=== PATIENT | male | born 1935 | race Hispanic/Latino ===

== ENCOUNTER 2017-11-13 10:35 | Emergency (ER) | payer BC, MEDICARE ==
[2017-11-13 11:25] LABS: ALT (SGPT) 10 U/L (8-55); AST (SGOT) 23 U/L (5-34); Alkaline Phosphatase 77 U/L (40-150); Anion Gap 12 mmol/L (10-20); BUN (Urea Nitrogen) 33 mg/dL (8.4-25.7); CK (CPK) 45 U/L (30-200); Calc. Creatinine Clearance 0 mL/min (70-130); Calcium 9.2 mg/dL (7.8-10.44); Carbon Dioxide 29 mmol/L (23-31); Chloride 106 mmol/L (98-107); Estimated GFR-MDRD 49; Globulin 3.3 g/dL (2.4-3.5); Protein, Total 7.1 g/dL (5.8-8.1)
[2017-11-13 11:35] LABS: Troponin I Less than 0.010 ng/mL (< 0.028)
[2017-11-13 11:38] LABS: #Eosinphils 0.1 thou/uL (0.0-0.7); #Lymphocytes 1.8 thou/uL (1.20-3.40); #Monocytes 0.3 thou/uL (0.11-0.59); #Neutrophils 3.2 thou/uL (1.40-6.50); %Basophils 0.7 % (0.0-1.0); %Eosinophils 2.6 % (0.0-10.0); %Lymphocytes 32.7 % (21.0-51.0); %Monocytes 4.7 % (0.0-10.0); Hematocrit 28.8 % (42.0-52.0); Macrocytosis MODERATE=16-30 cells (100X) (0-5/hpf); Mean Platelet Volume 9.2 fL (7.4-10.4); Red Blood Cell (RBC) Count 2.19 mill/uL (4.70-6.10); White Blood Cell (WBC) Count 5.5 thou/uL (4.8-10.8)
== END 2017-11-13 14:08 | disposition home or self-care (01) ==
LOC: ERS 10:35
DX: S80.212A Abrasion, left knee, initial encounter (principal); R20.2 Paresthesia of skin; I25.10 Atherosclerotic heart disease of native coronary artery without angina pectoris; W19.XXXA Unspecified fall, initial encounter
CPT/HCPCS: 36415; 80053; 82553; 83880; 84484; 85025; 93005

== ENCOUNTER 2017-11-27 10:40 | Emergency (ER) | payer MEDICARE, BC ==
[2017-11-27 12:10] LABS: #Eosinphils 0.1 thou/uL (0.0-0.7); #Lymphocytes 1.1 thou/uL (1.20-3.40); #Monocytes 0.2 thou/uL (0.11-0.59); #Neutrophils 3.2 thou/uL (1.40-6.50); %Basophils 0.1 % (0.0-1.0); %Eosinophils 2.9 % (0.0-10.0); %Monocytes 4.5 % (0.0-10.0); %Neutrophils 68.6 % (42.0-75.0); Hemoglobin 8.3 g/dL (14.0-18.0); Mean Corpuscular Hemoglobin 45.2 pg (27.0-31.0); Mean Platelet Volume 9.1 fL (7.4-10.4); Platelet Count 96 thou/uL (130-400); RBC Distribution Width 15.2 % (11.5-14.5); Red Blood Cell (RBC) Count 1.83 mill/uL (4.70-6.10); White Blood Cell (WBC) Count 4.6 thou/uL (4.8-10.8)
[2017-11-27 12:32] LABS: ALT (SGPT) 12 U/L (8-55); AST (SGOT) 19 U/L (5-34); Albumin 3.6 g/dL (3.4-4.8); Alkaline Phosphatase 91 U/L (40-150); Anion Gap 9 mmol/L (10-20); BUN (Urea Nitrogen) 39 mg/dL (8.4-25.7); Calc. Creatinine Clearance 0 mL/min (70-130); Carbon Dioxide 29 mmol/L (23-31); Chloride 107 mmol/L (98-107); Estimated GFR-MDRD 57; Globulin 3.3 g/dL (2.4-3.5); Glucose 95 mg/dL (83-110); Potassium 4.2 mmol/L (3.5-5.1); Protein, Total 6.9 g/dL (5.8-8.1); Sodium 141 mmol/L (136-145)
[2017-11-27 13:12] LABS: CKMB 0.9 ng/mL (0-6.6); Troponin I Less than 0.010 ng/mL (< 0.028)
--- NOTE | 2018-01-05 18:58 | EKG ---
Test Reason : Blood Pressure : / mmHG Vent. Rate : 088 BPM Atrial Rate : 088 BPM P-R Int : 132 ms QRS Dur : 070 ms QT Int : 360 ms P-R-T Axes : 084 006 068 degrees QTc Int : 435 ms Normal sinus rhythm Normal ECG Confirmed by LUPILLO GROSS, JAMAICA [place] ([id number]), commissioning editor ALEJO JONES ([id number]) on 01/05/2018 6:58:10 PM Referred By: Confirmed By:JAMAICA WESLEY MD
== END 2017-11-27 14:15 | disposition home or self-care (01) ==
LOC: EDBD → ERS 10:40
DX: D64.9 Anemia, unspecified (principal); I25.10 Atherosclerotic heart disease of native coronary artery without angina pectoris
CPT/HCPCS: 36415; 80053; 82550; 82553; 84484; 85025; 86850; 86900; 86901; 93005

== ENCOUNTER 2017-12-06 14:59 | Outpatient (CLI) | payer MEDICARE, BC ==
--- NOTE | 2017-12-06 17:56 | MRI ---
MRI CERVICAL SPINE 12/06/17 HISTORY: Cervical myelopathy, G95.9. Multiplanar and multisequence noncontrast enhanced MRI images cervical spine obtained. C1-2: Unremarkable. C2-3: There is a broad based disc bulge minimally but not significantly compressing the thecal sac. T he neural foramen are patent. C3-4: There is a broad based central disc protrusion compressing the thecal sac and compressing the a nterior aspect of the spinal cord deforming the cord anteriorly. The right neural foramen is patent. There was moderate severe left C3-4 neural foraminal narrowing due to uncovertebral osteophyte hypert rophy. C4-5: There is a broad based central disc protrusion compressing the thecal sac and minimally mary lou sing the spinal cord. Moderate bilateral C4-5 neural foraminal narrowing is seen due to uncovertebral osteophyte hypertrophy. C5-6: There is a broad based central and left paracentral disc osteophyte complex resulting in modera te compression of the thecal sac and mild compression of the left C5-6 spinal cord. The right neural foramen is patent. There is moderate to severe left C5-6 neural foraminal narrowing due to uncoverteb ral osteophyte hypertrophy. C6-7: No significant evidence of central or neural foraminal narrowing is seen. C7-T1: Unremarkable. IMPRESSION: Central thecal sac compression with some compression of the cord at C3-4, C4-5, and to a lesser degre e C5-6. POS: [facility]
== END 2017-12-06 15:00 | disposition home or self-care (01) ==
LOC: MRI 14:59
PROVIDERS: ATTEND Psychiatry & Neurology Neurology
DX: G95.9 Disease of spinal cord, unspecified (principal); G95.20 Unspecified cord compression
CPT/HCPCS: 72141

== ENCOUNTER 2017-12-24 11:39 | Outpatient (CLI) | payer MEDICARE, BC ==
[2017-12-24 13:37] LABS: Mean Corpuscular HGB CONC 32.2 g/dL (32.0-36.0); Mean Corpuscular Hemoglobin 40.1 pg (27.0-31.0); Mean Platelet Volume 9.4 fL (7.4-10.4); Platelet Count 151 thou/uL (130-400); RBC Distribution Width 14.4 % (11.5-14.5); Red Blood Cell (RBC) Count 2.24 mill/uL (4.70-6.10); White Blood Cell (WBC) Count 6.6 thou/uL (4.8-10.8)
== END 2017-12-24 11:40 | disposition home or self-care (01) ==
LOC: EDBD → LABBT 11:39
PROVIDERS: ATTEND Neurological Surgery
DX: Z01.812 Encounter for preprocedural laboratory examination (principal); M47.892 Other spondylosis, cervical region
CPT/HCPCS: 85027

== ENCOUNTER 2017-12-31 07:44 | Day surgery (SDC) | payer MEDICARE, BC ==
[2017-12-24 12:32] VITALS: BMI 18.9
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
[2017-12-31] MEDS ORDERED: CEFAZOLIN/Water 2 GM/20 ML SYRINGE ONE ×2 (08:38→17:20)
[2017-12-31] MEDS ORDERED: Bupivacaine PF 0.5% 30 ML VIAL ONE (10:10)
[2017-12-31] MEDS ORDERED: Lidocaine 1% w/Epinephrine 1:200K 30 ML VIAL ONE (10:10)
[2017-12-31] MEDS ORDERED: Thrombin 5000 UNITS/5 ML VIAL ONE (10:10)
[2017-12-31] MEDS ORDERED: Fentanyl 100 MCG/2 ML VIAL ONE ×2 (10:17→12:43)
[2017-12-31] MEDS ORDERED: Tamsulosin HCl 0.4 MG CAP ONE (12:38)
--- NOTE | 2017-12-31 13:26 | OP ---
DATE OF SERVICE: 12/31/2017 SURGEON: Aníbal Cline M.D. BRAZER REPAIR AND SALVAGE: Jai Arcos PA-C. INDICATION: Prevent neurologic decline. DIAGNOSES: Cervical spondylitic myelopathy. PROCEDURE PERFORMED: Posterior cervical laminectomy, C3-C6. ANESTHESIA: General. TECHNIQUE: The patient was brought into the operating room and placed under general anesthesia. He was carefully flipped from a supine to a prone position on the operating room table. A linear incisi on was planned spanning C3-C6. After prepping and draping and after an appropriate operative pause, the incision was created. The soft tissues were swept away from midline. Self-retaining retractors were placed in the wound for optimal exposure. After confirming the appropriate level with C-arm flu oroscopy, Adson rongeurs as well as Kerrisons were used to perform a laminectomy spanning from C3-C6. After complete decompression, the wound was irrigated. Hemostasis was maintained throughout. The wound was then closed in anatomic layers and a pressure dressing was applied. There were no known pr ocedural complications.
[2017-12-31] MEDS ORDERED: ePHEDrine/0.9% NaCl/PF SYRINGE 50 mg/10 ml ONE (15:01)
[2017-12-31] MEDS ORDERED: PHENYLEPHRINE-NS 100 MCG/ML 10 ML SYRINGE ONE (15:01)
[2017-12-31] MEDS ORDERED: PROPOFOL 200 MG/20 ML VIAL ONE (15:01)
[2017-12-31] MEDS ORDERED: Ondansetron HCl/PF 4 MG/2 ML Vial ONE (15:01)
[2017-12-31] MEDS ORDERED: Dexamethasone 20 MG/5 ML VIAL ONE (15:01)
[2017-12-31] MEDS ORDERED: Lidocaine 1% PF 5 ML VIAL ONE (15:01)
[2017-12-31] MEDS ORDERED: Acetaminophen/Codeine 30-300mg Tablet ONE (17:31)
== END 2017-12-31 18:23 | disposition home or self-care (01) ==
LOC: EDBD → SDC 07:44
PROVIDERS: ATTEND Neurological Surgery
PROC: 00NW0ZZ Release Cervical Spinal Cord, Open Approach (ICD-10-PCS; principal; 2017-12-31)
DX: M47.12 Other spondylosis with myelopathy, cervical region (principal)
CPT/HCPCS: 76001; 96374; J0131; J1100; J2001; J2405; J2704; J3010; S0020

== ENCOUNTER 2018-07-03 10:21 | Outpatient (CLI) | payer MEDICARE, BC | END 2018-07-03 10:22 | disposition home or self-care (01) | LOC: BICCT 10:21 | PROVIDERS: ATTEND Internal Medicine Geriatric Medicine | DX: F03.90 Unspecified dementia, unspecified severity, without behavioral disturbance, psychotic disturbance, mood disturbance, and anxiety (principal) | CPT/HCPCS: 70450 ==

== ENCOUNTER 2020-10-18 10:54 | Outpatient (CLI) | payer MEDICARE, BC ==
--- NOTE | 2020-10-18 11:36 | RAD ---
XR Pelvis AP STANDARD HISTORY: Fall, hip pain FINDINGS: No fracture or dislocation is identified.
== END 2020-10-18 10:55 | disposition home or self-care (01) ==
LOC: BICRAD 10:54
PROVIDERS: ATTEND Nurse Practitioner Family
DX: R31.9 Hematuria, unspecified (principal); R82.90 Unspecified abnormal findings in urine; W19.XXXA Unspecified fall, initial encounter
CPT/HCPCS: 72170; 81001; 87086

== ENCOUNTER 2020-11-04 13:50 | Outpatient (CLI) | payer MEDICARE, BC ==
--- NOTE | 2020-11-04 16:24 | ULT ---
RENAL ULTRASOUND: 11/04/20 HISTORY: Hematuria. Real time imaging of the right and left kidneys were performed. Right kidney measures 7.8 cm in lengt h. The left kidney 8 cm in length. Cortical thinning of both kidneys are noted. Cortical thickness si te is less than 1 cm. No cyst, mass or obstruction. The bladder is almost completely empty at the dani e of this exam. IMPRESSION: Cortical thinning of both kidneys, otherwise unremarkable study. POS: [facility]
== END 2020-11-04 13:51 | disposition home or self-care (01) ==
LOC: BICULT 13:50
PROVIDERS: ATTEND Nurse Practitioner Family
DX: R31.9 Hematuria, unspecified (principal); R82.90 Unspecified abnormal findings in urine; N28.89 Other specified disorders of kidney and ureter
CPT/HCPCS: 76770

== ENCOUNTER 2021-01-14 09:22 | Outpatient (CLI) | payer MEDICARE, BC ==
--- NOTE | 2021-01-14 10:54 | CT ---
CT ABDOMEN AND PELVIS WITH AND WITHOUT IV CONTRAST: Date: 01/14/2021 HISTORY: Hematuria. Bladder neoplasm. FINDINGS: The lung bases are unremarkable. There are calcified granulomas in the spleen. The liver, pancreas, a nd adrenal glands are unremarkable. No calcified gallstones are seen. There are a few tiny calculi in the kidneys bilaterally. No calculi seen in the ureters or the urinar y bladder. No hydroureteronephrosis seen on either side. Postcontrast images demonstrate a 4.0 mm low density lesion in the left renal cortex, too small to characterize, likely cysts. There is normal co ntrast excretion to the ureters and the urinary bladder. There is a 1.5 cm mass arising from the wall of the urinary bladder on the left. No free air, free fluid, or lymphadenopathy seen in the abdomen or pelvis. There are vascular calcifi cations without evidence of aneurysmal dilatation of the abdominal aorta. There are degenerative quinonez ges in the spine. There is compression of multiple vertebral bodies. There is a small, fat-containing left inguinal hernia. IMPRESSION: 1. Findings are consistent with bladder malignancy. 2. No evidence of metastatic disease. POS: [facility]
[2021-01-14] MEDS ORDERED: Iopamidol 370 76% 100 ML VIAL ONE (11:11)
== END 2021-01-14 09:23 | disposition home or self-care (01) ==
LOC: CT 09:22
PROVIDERS: ATTEND Family Medicine
DX: D49.4 Neoplasm of unspecified behavior of bladder (principal)
CPT/HCPCS: 74178; 82565; Q9967

== ENCOUNTER 2021-01-21 05:53 | Day surgery (SDC) | payer MEDICARE, BC ==
[2021-01-20 13:59] VITALS: BMI 16.9
[2021-01-21] MEDS ORDERED: Levofloxacin 500 mg/D5W 100 ml Premix Bag ONE (06:36)
[2021-01-21] MEDS ORDERED: Fentanyl 100 MCG/2 ML VIAL ONE ×2 (06:38→09:34)
[2021-01-21] MEDS ORDERED: Ketamine 50 MG/ML (10ML VIAL) ONE (07:08)
[2021-01-21] MEDS ORDERED: Lidocaine 2% Jelly 5 ML TUBE ONE (07:37)
[2021-01-21] MEDS ORDERED: SUGAMMADEX SODIUM 200 MG/2 ML VIAL ONE (08:25)
[2021-01-21] MEDS ORDERED: Iothalamate Meglumine 60% 50 ML VIAL FS ONE (08:25)
[2021-01-21] MEDS ORDERED: mitoMYcin 40 MG in Sterile Water 20 ML IV SCH (08:30)
[2021-01-21] MEDS ORDERED: B & O ONE (08:53)
[2021-01-21] MEDS ORDERED: PHENYLEPHRINE-NS 100 MCG/ML 10 ML SYRINGE ONE (09:47)
[2021-01-21] MEDS ORDERED: Ondansetron PF 4 MG/2 ML Vial ONE (09:47)
[2021-01-21] MEDS ORDERED: PROPOFOL 200 MG/20 ML VIAL ONE (09:47)
[2021-01-21] MEDS ORDERED: Rocuronium Bromide 10 MG/ML (10ML VIAL) ONE (09:47)
[2021-01-21] MEDS ORDERED: ePHEDrine 50 MG/ML VIAL ONE (09:47)
[2021-01-21] MEDS ORDERED: Glycopyrrolate 0.2 MG/ML 5 ML SYRINGE ONE (09:47)
[2021-01-21] MEDS ORDERED: Dexamethasone 20 MG/5 ML VIAL ONE (09:47)
--- NOTE | 2021-01-21 10:31 | RAD ---
Retrograde pyelogram: 01/21/2021 HISTORY: Stent FINDINGS: 2 images are provided. There is contrast media within the urinary bladder and a partially i pablito urethra. Lobulated contrast containing outpouchings of the urinary bladder dome noted suggesting multiple bladder diverticula. Recent CT demonstrates a masslike area of wall thickening of the urinary bladder on the left which co uld not be adequately visualized on this examination but is concerning for bladder malignancy IMPRESSION: Limited assessment of the urinary bladder demonstrates urinary bladder diverticula. The m ass within the urinary bladder was not discretely visualized on this exam. CT performed 01/14/2021 demonstrates a lesion associated with the left aspect of the urinary bladder concerning for malignanc y.
--- NOTE | 2021-01-21 11:04 | OP ---
DATE OF PROCEDURE: 01/21/2021 SERVICE: Urology. PREOPERATIVE DIAGNOSIS: Bladder tumor. POSTOPERATIVE DIAGNOSIS: Bladder tumor. PROCEDURE PERFORMED: Transurethral resection of bladder tumor with fulguration of bladder tumor for an area of greater than 5 cm. BRIEF HISTORY: Mr. Barton is an 85-year-old male, who presented to me with gross hematuria. CT demonstrated a bladder mass. Cystoscopy was difficult due to significant opacity of the urine with hematuria. While cysto was difficult, we were able to visualize part of the tumor present on the patient's left lateral wall. I told the patient the best option would be to go for transurethral resection of bladder tumor with clearance of the blood and a full inspection of bladder removal of any other tumors that might be identified. I talked to the patient's son about postoperative mitomycin-C as well with risks and benefits of the surgery and chemo and they have agreed to proceed forward with both. DESCRIPTION OF PROCEDURE: After identification of armband and verification of consent, the patient was brought back to the operating room, where he underwent general anesthesia with endotracheal intubation. He was then placed in dorsal lithotomy position and prepped and draped in usual sterile fashion. After appropriate time-out, a rigid 26-Spanish resectoscope sheath with visual obturator was passed through the urethra and into the bladder. There was a significant turbidity, which was irrigated out with continuous flow irrigation. Upon inspection, there was a large tumor noted on the patient's left bladder wall near the bladder neck. This was well enough away from the ureteral orifices, both of which were clear from any tumor and present in orthotopic location. There were numerous areas of multifocal small patches of tumor that were papillary and small along the bladder wall, both on the posterior and lateral aspects of the bladder. A few spots in the dome of the bladder and a few additional locations. The majority of the tumor was in the patient's left bladder. Initial resection was started on the bulky bladder tumor on the left bladder neck, which was resected with the gyrus bipolar loop. Resection was carried out to the detrusor muscle, but not through the detrusor muscle. There were a few areas that appeared thin, but there did not appear to be any bladder perforation. The remaining areas of the bladder tumor was resected or fulgurated. The majority of the bladder tumor on the posterior wall and the other locations because they were so fine and papillary, I elected to just cauterize these rather than trying to resect them. A significant amount of cautery had to be used to destroy the multifocal areas of tumor. Upon completion, hemostasis was achieved by cauterizing any visible blood vessels or any areas that had any oozing until there was excellent hemostasis. The bladder tumor pieces were irrigated out using an Ellik evacuator and final inspection demonstrated no additional bleeding and no visible tumor left behind. Upon completion of the case, the cystoscope was removed. An 18-Spanish Cho catheter was placed with ease in the patient's bladder with 10 mL of sterile water into the balloon. A cystogram was performed given that there was some thinning of the bladder wall in the area of the resection. The bladder was filled to approximately 240 mL. The trabeculations and cellules along with diverticula could be identified, but there did not appear to be any extravasation, especially towards the left portion of bladder, where the resection was performed. Satisfied that there was not any area of leak, I felt it was safe to proceed with mitomycin-C. All the contrast and saline were drained out of the bladder via the Cho catheter and then 40 mg of mitomycin-C and 20 mL of H2O were instilled into the patient's bladder. A catheter plug was placed. The patient had B and O suppository placed in his rectum, was taken out of position, awakened, taken to PACU for recovery in stable condition. COMPLICATIONS: None. ESTIMATED BLOOD LOSS: Minimal. RETAINED TUBES AND DRAINS: An 18-Spanish Cho catheter, which is currently capped. SPECIMENS: Bladder tumor pieces. DISPOSITION: The patient will keep his mitomycin-C in for 1 hour Dwell time, at which point, his chemotherapy will be drained. His catheter will be removed. He will undergo a void trial and be discharged home with followup with me on an outpatient basis. Job ID: [id number]
== END 2021-01-21 19:50 | disposition home or self-care (01) ==
LOC: SDC 05:53
PROVIDERS: ATTEND Urology
PROC: 0T5B8ZZ Destruction of Bladder, Via Natural or Artificial Opening Endoscopic (ICD-10-PCS; principal; 2021-01-21)
DX: C67.2 Malignant neoplasm of lateral wall of bladder (principal); N32.3 Diverticulum of bladder; I25.10 Atherosclerotic heart disease of native coronary artery without angina pectoris; F03.90 Unspecified dementia, unspecified severity, without behavioral disturbance, psychotic disturbance, mood disturbance, and anxiety; F51.01 Primary insomnia; N18.30 Chronic kidney disease, stage 3 unspecified; D63.1 Anemia in chronic kidney disease; Z79.899 Other long term (current) drug therapy; Z95.1 Presence of aortocoronary bypass graft
CPT/HCPCS: 52240; 74420; J9280; 88307; J1100; J1956; J2405; J2704; J3010; J3490

== ENCOUNTER 2021-01-31 09:28 | Outpatient (CLI) | payer MEDICARE, BC ==
[2021-01-31] MEDS ORDERED: Iopamidol-370 76% 500 ML 1 ML ONE (11:23)
== END 2021-01-31 09:29 | disposition home or self-care (01) ==
LOC: RAD 09:28
PROVIDERS: ATTEND Urology
DX: R33.9 Retention of urine, unspecified (principal)
CPT/HCPCS: 51600; 74455; Q9967